=== PATIENT | male | born 1980 | race Caucasian/White ===

== ENCOUNTER 2024-07-22 11:16 | Inpatient (IN) | payer OTHER ==
[~2024-07-22] VITALS: Ht 175.3 cm; Wt 95.0 kg
[2024-07-22 12:04] LABS: HEMATOCRIT 44.3 % (42.0-52.0); HEMOGLOBIN 15.3 g/dl (13.5-17.5); MEAN CORPUSCULAR HEMOGLOBIN 29.4 pg (27.0-33.0); MEAN CORPUSCULAR HGB CONC 34.5 g/dl (32.0-36.5); PLATELET COUNT, AUTOMATED 187 10^3/uL (150-450); RED BLOOD COUNT 5.21 10^6/uL (4.30-6.10); WHITE BLOOD COUNT 5.7 10^3/uL (4.0-10.0)
[2024-07-22] MEDS ORDERED: CITA10TA7 PO (12:33)
[2024-07-22 12:35] LABS: ETHYL ALCOHOL (ETHANOL) < 0.003 % (0.000-0.010)
[2024-07-22] MEDS ORDERED: HOME MED LIST COMPLETE! XX SCH (12:35)
[2024-07-22 12:37] LABS: ALBUMIN 3.9 G/DL (3.2-5.2); ALKALINE PHOSPHATASE 71 U/L (40-129); ALT/SGPT 30 U/L (7.0-40); AST/SGOT 25 U/L (<34); BILIRUBIN,DIRECT 0.2 MG/DL (<0.4); BILIRUBIN,TOTAL 0.6 MG/DL (0.3-1.2); BLOOD UREA NITROGEN 13 MG/DL (9-23); CALCIUM LEVEL 9.1 MG/DL (8.5-10.1); CARBON DIOXIDE LEVEL 27 MMOL/L (20-31); CHLORIDE LEVEL 106 MMOL/L (98-107); CREATININE FOR GFR 0.84 MG/DL (0.70-1.30); GLOMERULAR FILTRATION RATE > 90.0 (>60); GLUCOSE, FASTING 96 MG/DL (60-100); POTASSIUM SERUM 3.9 MMOL/L (3.5-5.1); SALICYLATE LEVEL < 3.0 MG/DL (<30); SODIUM LEVEL 141 MMOL/L (136-145); TOTAL PROTEIN 6.9 G/DL (5.7-8.2)
[2024-07-22 12:39] LABS: THYROID STIMULATING HORMONE 1.301 uIU/ML (0.55-4.78)
[2024-07-22 12:58] LABS: AMPHETAMINES LEVEL URINE NEGATIVE (NEGATIVE); BARBITURATES URINE NEGATIVE (NEGATIVE); BENZODIAZEPINES URINE NEGATIVE (NEGATIVE); COCAINE METABOLITE URINE NEGATIVE (NEGATIVE)
[2024-07-22 12:59] LABS: CANNABINOIDS URINE NEGATIVE (NEGATIVE); METHADONE URINE NEGATIVE (NEGATIVE); OPIATES URINE NEGATIVE (NEGATIVE); PHENCYCLIDINE URINE NEGATIVE (NEGATIVE)
[2024-07-22 17:44] VITALS: BP 138/98; TEMP 96.9; O2SAT 98
[2024-07-22] MEDS ORDERED: MOM 30ML SUSPENSION UDC PO PRN (18:10)
[2024-07-22] MEDS ORDERED: IBUPROFEN 400MG TAB PO PRN (18:10)
[2024-07-22] MEDS ORDERED: diphenhydrAMINE 25MG CAP PO PRN (18:10)
[2024-07-22] MEDS ORDERED: ACETAMINOPHEN 325 MG TAB PO PRN (18:10)
[2024-07-22] MEDS ORDERED: MAALOX 30 ML SUSP *UDC PO PRN (18:10)
[2024-07-22 20:14] LABS: INR 0.93; PARTIAL THROMBOPLASTIN TIME 30.4 SECONDS (24.8-34.2); PROTHROMBIN TIME 12.8 SECONDS (12.5-14.5)
[2024-07-22] MEDS: traZODone 50 MG TAB PO PRN (21:12)
[2024-07-23 07:02] VITALS: BP 107/61; TEMP 97.1; O2SAT 94
[2024-07-23] MEDS: CitaloPRAM (CeleXA) 10 MG TABLET PO SCH (09:00)
[2024-07-23] MEDS ORDERED: OLANZapine ORAL DISINTEGRATING TAB 5MG PO PRN (09:55)
[2024-07-23] MEDS: CitaloPRAM (CeleXA) 20 MG TAB PO SCH (10:32)
[2024-07-23 16:01] VITALS: BP 135/90; TEMP 97; O2SAT 95
[2024-07-24 06:34] VITALS: BP 113/64; TEMP 97; O2SAT 99
[2024-07-24] MEDS ORDERED: CitaloPRAM (CeleXA) 10 MG TABLET PO SCH (09:00)
[2024-07-24 14:37] VITALS: BP 122/81; TEMP 97.1; O2SAT 96
[2024-07-25 06:32] VITALS: BP 124/85; TEMP 97.3; O2SAT 98
[2024-07-25 17:24] VITALS: BP 166/81; TEMP 97.9; O2SAT 98
[2024-07-26] MEDS ORDERED: CELE20TA PO (02:07)
[2024-07-26] MEDS ORDERED: TRAZ-252 PO (02:07)
[2024-07-26 06:37] VITALS: BP 139/90; TEMP 97.6; O2SAT 98
[2024-07-26] MEDS ORDERED: CITA20TA6 PO (11:58)
[2024-07-26] MEDS ORDERED: TRAZ-186 PO (11:58)
== END 2024-07-26 13:00 | disposition home or self-care (01) | DRG 751 ==
LOC: M ED 11:16 → M ED INP 14:54 → M PSY 16:47
PROVIDERS: ADMIT Psychiatry & Neurology Psychiatry; ATTEND Psychiatry & Neurology Psychiatry
DX: F33.1 Major depressive disorder, recurrent, moderate (principal); R45.851 Suicidal ideations; F41.1 Generalized anxiety disorder; Z79.899 Other long term (current) drug therapy; F17.200 Nicotine dependence, unspecified, uncomplicated